=== PATIENT | female | born 1930 | race Caucasian/White ===

== ENCOUNTER 2017-04-11 08:35 | Inpatient (IN) | END 2017-05-01 20:30 | DRG 870 | DX: A41.9 Sepsis, unspecified organism (principal); J96.21 Acute and chronic respiratory failure with hypoxia; J18.9 Pneumonia, unspecified organism; R65.21 Severe sepsis with septic shock; G92 Toxic encephalopathy; I50.23 Acute on chronic systolic (congestive) heart failure; Z99.11 Dependence on respirator [ventilator] status; L89.153 Pressure ulcer of sacral region, stage 3; N18.6 End stage renal disease; E87.0 Hyperosmolality and hypernatremia; N39.0 Urinary tract infection, site not specified; I13.2 Hypertensive heart and chronic kidney disease with heart failure and with stage 5 chronic kidney disease, or end stage renal disease; B48.8 Other specified mycoses; D64.9 Anemia, unspecified; Z93.0 Tracheostomy status; E03.9 Hypothyroidism, unspecified; Z99.2 Dependence on renal dialysis; I48.0 Paroxysmal atrial fibrillation; I35.1 Nonrheumatic aortic (valve) insufficiency; R13.10 Dysphagia, unspecified; M89.8X9 Other specified disorders of bone, unspecified site; E83.9 Disorder of mineral metabolism, unspecified; Z86.73 Personal history of transient ischemic attack (TIA), and cerebral infarction without residual deficits; Z93.1 Gastrostomy status; F01.50 Vascular dementia, unspecified severity, without behavioral disturbance, psychotic disturbance, mood disturbance, and anxiety; E87.5 Hyperkalemia; R73.9 Hyperglycemia, unspecified; R19.7 Diarrhea, unspecified ==

== ENCOUNTER 2017-05-24 00:09 | Inpatient (IN) | END 2017-06-05 20:40 | DRG 870 | DX: A41.9 Sepsis, unspecified organism (principal); J96.00 Acute respiratory failure, unspecified whether with hypoxia or hypercapnia; I63.9 Cerebral infarction, unspecified; R65.21 Severe sepsis with septic shock; G92 Toxic encephalopathy; J18.9 Pneumonia, unspecified organism; Z99.11 Dependence on respirator [ventilator] status; L89.153 Pressure ulcer of sacral region, stage 3; Z93.0 Tracheostomy status; N18.6 End stage renal disease; B37.49 Other urogenital candidiasis; I50.30 Unspecified diastolic (congestive) heart failure; I95.9 Hypotension, unspecified; D64.9 Anemia, unspecified; L89.621 Pressure ulcer of left heel, stage 1; Z93.1 Gastrostomy status; I25.10 Atherosclerotic heart disease of native coronary artery without angina pectoris; B95.2 Enterococcus as the cause of diseases classified elsewhere; Z16.21 Resistance to vancomycin; R19.5 Other fecal abnormalities; B96.1 Klebsiella pneumoniae [K. pneumoniae] as the cause of diseases classified elsewhere; B96.89 Other specified bacterial agents as the cause of diseases classified elsewhere; E03.9 Hypothyroidism, unspecified ==

== ENCOUNTER 2017-06-29 20:55 | Inpatient (IN) | END 2017-07-24 16:45 | disposition EXP | DRG 870 | DX: A41.9 Sepsis, unspecified organism (principal); R65.21 Severe sepsis with septic shock; J80 Acute respiratory distress syndrome; J18.9 Pneumonia, unspecified organism; G93.40 Encephalopathy, unspecified; I50.33 Acute on chronic diastolic (congestive) heart failure; Z99.11 Dependence on respirator [ventilator] status; L89.153 Pressure ulcer of sacral region, stage 3; N18.6 End stage renal disease; J96.11 Chronic respiratory failure with hypoxia; E87.1 Hypo-osmolality and hyponatremia; E46 Unspecified protein-calorie malnutrition; J96.12 Chronic respiratory failure with hypercapnia; I13.2 Hypertensive heart and chronic kidney disease with heart failure and with stage 5 chronic kidney disease, or end stage renal disease; I48.0 Paroxysmal atrial fibrillation; Z99.2 Dependence on renal dialysis; L89.610 Pressure ulcer of right heel, unstageable; I25.10 Atherosclerotic heart disease of native coronary artery without angina pectoris; E78.5 Hyperlipidemia, unspecified; D64.9 Anemia, unspecified; E83.9 Disorder of mineral metabolism, unspecified; E87.6 Hypokalemia; Z86.73 Personal history of transient ischemic attack (TIA), and cerebral infarction without residual deficits; Z87.440 Personal history of urinary (tract) infections; Z66 Do not resuscitate; Y95 Nosocomial condition; Z68.36 Body mass index [BMI] 36.0-36.9, adult; Z93.0 Tracheostomy status ==